=== PATIENT | male | born 1965 | race Two or more races ===

== ENCOUNTER 2017-08-02 18:08 | Inpatient (IN) | payer OTHER ==
[~2017-08-02] VITALS: Ht 167.6 cm; Wt 71.4 kg
--- NOTE | 2017-08-02 19:10 | NUR ---
52 YO MALE BB RA FROM HOME. PATIENT C/O COUGH AND CONGESTION, AND FEVER X 8 DAYS. PATIENT AMBULATED TO ER BED, SKIN WARM AND DRY, RESP EVEN AND UNLABORED. NO DISTRESS NOTED, WILL CONTINUE TO MONITOR
[2017-08-02 20:59] LABS: BASOPHILS # (AUTO) 0.3 /CMM (0.0-0.2); BASOPHILS % (AUTO) 1.3 % (0.0-2.0); EOSINOPHILS # (AUTO) 0.1 /CMM (0.0-0.7); EOSINOPHILS % (AUTO) 0.3 % (0.0-6.0); HEMATOCRIT 37 % (39-51); HEMOGLOBIN 12.8 g/dL (13.5-17.5); LYMPHOCYTES # (AUTO) 1.5 /CMM (0.8-4.8); LYMPHOCYTES % (AUTO) 5.7 % (20.0-44.0); MEAN CORPUSCULAR HEMOGLOBIN 29 PG (26.0-33.0); MEAN CORPUSCULAR HGB CONC 34 g/dl (31.0-36.0); MEAN CORPUSCULAR VOLUME 86 fL (80-96); MONOCYTES # (AUTO) 0.6 /CMM (0.1-1.30); MONOCYTES % (AUTO) 2.4 % (2.0-12.0); NEUTROPHILS # (AUTO) 24.1 /CMM (1.8-8.9); NEUTROPHILS % (AUTO) 90.3 % (43.0-81.0); PLATELET COUNT (AUTO) 370 /CMM (150-450); RDW COEFFICIENT OF VARIATION 12.9 (11.5-15.0); RED BLOOD CELL COUNT(AUTO) 4.37 MIL/uL (4.5-6.0); WHITE BLOOD COUNT (AUTO) 26.6 K/uL (4.3-11.0)
--- NOTE | 2017-08-02 20:59 | NUR ---
20G LEFT AC IV STARTED, BLOOD SAMPLE OBTAINED AND SENT TO LAB. MEDICATED PATIENT ORDERED
[2017-08-02] MEDS ORDERED: IV NS 0.9% 1,000 ML BAG IV ONE (21:00)
[2017-08-02 21:05] LABS: CALCIUM, SERUM 9.3 mg/dL (8.5-10.1); CREATININE 1.1 mg/dL (0.6-1.3); POTASSIUM 4.4 mmol/L (3.5-5.1)
--- NOTE | 2017-08-02 21:59 | NUR ---
PANEL CALLED, SHANON CALLED
[2017-08-02] MEDS ORDERED: AMOX-430 PO (22:20)
[2017-08-02] MEDS ORDERED: SIMV20TA6 PO (22:20)
[2017-08-02] MEDS ORDERED: METF500T4 PO (22:20)
[2017-08-02] MEDS ORDERED: LEVO50TA8 PO (22:20)
[2017-08-02] MEDS ORDERED: RAMI10CA PO (22:20)
[2017-08-02] MEDS ORDERED: PIPERACILLIN /TAZOBACTAM 3.375 G in IV D5W 50 ML IV ONE (22:30)
[2017-08-02] MEDS ORDERED: VANCOMYCIN 1 GM in IV D5W 250 ML IV ONE (22:30)
[2017-08-03] MEDS ORDERED: PIPERACILLIN /TAZOBACTAM 3.375 G VIAL IV ONE (00:16)
[2017-08-03] MEDS ORDERED: VANCOMYCIN 1 GM VIAL ONE (00:16)
[2017-08-03 00:32] LABS: BAND % (MANUAL) 2 % (0.0-5.0); LYMPHOCYTES % (MANUAL) 11 % (16-48); MONOCYTES % (MANUAL) 5 % (0-11.0); NEUTROPHILS % (MANUAL) 82 (42-76)
--- NOTE | 2017-08-03 00:33 | NUR ---
REPORT GIVEN TO KINZA DEL CID FOR TELE ADMISSION BED 327.1
--- NOTE | 2017-08-03 00:35 | NUR ---
TRANSPORTED PT PATIENT TO TELE BED WITHOUT INCIDENT
--- NOTE | 2017-08-03 00:45 | NUR ---
TELE/RN NOTES RECEIVED PT. FROM ER VIA ISHA. PT. IS AWAKE, ALERT AND ORIENTED X3. BREATHING EVEN AND UNLABORED ON ROOM AIR. NO SOB, RESPIRATORY DISTRESS OR COMPLAINTS OF PAIN NOTED AT THIS TIME. PT. WITH LEFT AC 20 GAUGE PERIPHERAL IV PRESENT, PATENT AND INTACT ADMINISTERING TO PT. ALICEO 1GRAM FROM ER. ORIENTED PT. TO ROOM. PLACED EXTERNAL MECHANICAL PROJECT ENGINEER ON PT. CURRENT RHYTHM = SINUS TACHYCARDIA HEART RATE 102. PT. SON PRESENT AT BEDSIDE. BED LOCKED AND IN LOWEST POSITION, SIDE RAILS UP X2, BED ALARM ON, CALL LIGHT WITHIN REACH, WILL CONTINUE TO MONITOR.
[2017-08-03] MEDS ORDERED: LEVOFLOXACIN 500 MG /D5W 100ML 100 ML IV ONE (01:24)
[2017-08-03] MEDS ORDERED: ACETAMINOPHEN 325 MG TABLET ONE (01:25)
[2017-08-03] MEDS ORDERED: DEXTROSE 50%-WATER 50 ML DISP.SYRIN IV PRN (01:30)
[2017-08-03] MEDS ORDERED: INSULIN GLARGINE, 100 UNIT/ML CARTRIDGE SQ ONE (01:30)
[2017-08-03] MEDS ORDERED: ZOLPIDEM TARTRATE 5 MG TABLET PO PRN (01:30)
[2017-08-03] MEDS ORDERED: HYDROCODONE/APAP 5/325MG 1 EACH TABLET PO PRN (01:30)
[2017-08-03] MEDS ORDERED: LEVOFLOXACIN 500 MG /D5W 100ML 500 MG in PREMIX 1 EA IV SCH (01:30)
--- NOTE | 2017-08-03 01:35 | NUR ---
TELE/RN NOTES PT. FEELS WARM TO THE TOUCH. PT. TEMPERATURE IS 101.8F. COOLING MEASURES IMPLEMENTED. WILL ADMINISTER TO PT. TYLENOL ORDERED. PER ER NURSE JOZEF BLOOD CULTURES WERE DONE IN ER. PT. IS CURRENTLY RECEIVING IV ANTIBIOTICS. WILL CONTINUE TO MONITOR.
[2017-08-03] MEDS: ACETAMINOPHEN 325 MG TABLET PO PRN ×2 (01:39→09:42)
--- NOTE | 2017-08-03 02:15 | NUR ---
TELE/RN NOTES COOLING MEASURES EFFECTIVE. PT. TEMPERATURE GOING DOWN. PT. CURRENT TEMPERATURE = 100.1F WILL CONTINUE WITH COOLING MEASURES. WILL CONTINUE TO MONITOR.
--- NOTE | 2017-08-03 02:45 | NUR ---
TELE/RN NOTES COOLING MEASURES EFFECTIVE. PT. CURRENT TEMPERATURE = 98.8F. WILL CONTINUE TO MONITOR.
[2017-08-03] MEDS ORDERED: INSULIN DETEMIR 100 UNIT/ML CARTRIDGE SQ ONE ×2 (03:30→04:26)
--- NOTE | 2017-08-03 03:30 | NUR ---
TELE/RN NOTES CALLED AND SPOKE WITH NURSING BATTERY CONTAINER INSPECTOR GARDENIA, PER GARDENIA LANTUS MEDICATION IS NOT AVAILABLE AT THIS HOSPITAL, PER PHARMACY LANTUS IS CONVERTED TO LEVEMIR. GARDENIA STATED NO NEED TO CALL MD CESPEDES TO CLARIFY CHANGE BECAUSE IT IS POLICY. WILL CHANGE MEDICATION LANTUS TO LEVEMIR. WILL CONTINUE TO MONITOR.
--- NOTE | 2017-08-03 03:31 | NUR ---
TELE/RN NOTES NURSING UTILITY BILL COLLECTION CLERK GARDENIA STATED SHE WILL NOT BE ABLE TO GET LEVEMIR MEDICATION UNTIL AROUND 0400. WILL CONTINUE TO MONITOR AND ADMINISTER MEDICATION TO PATIENT WHEN AVAILABLE.
[2017-08-03 04:01] VITALS: BP 119/74
[2017-08-03] MEDS ORDERED: IV PREMIX 0.45% NS + KCL 1,000 ML IV ONE (04:26)
--- NOTE | 2017-08-03 06:33 | NUR ---
TELE/RN NOTES PT. IS LYING IN BED RESTING. BREATHING EVEN AND UNLABORED ON ROOM AIR. NO SOB, RESPIRATORY DISTRESS OR COMPLAINTS OF PAIN NOTED AT THIS TIME. PT. WITH LEFT AC 20 GAUGE PERIPHERAL IV PRESENT, PATENT AND INTACT ADMINISTERING TO PT. 1/2NS WITH 20 MEQ KCL @ 100ML/HR. PT. WITH EXTERNAL COUNTER INSTALLER PRESENT AND INTACT. CURRENT RHYTHM = SINUS RHYTHM HR 93. ALL PT. NEEDS MET. BED LOCKED AND IN LOWEST POSITION, SIDE RAILS UP X2, BED ALARM ON, CALL LIGHT WITHIN REACH, WILL ENDORSE TO DAYSHIFT NURSE FOR CONTINUITY OF CARE.
[2017-08-03] MEDS: INSULIN REGULAR, HUMAN 100 UNIT/ML 3 ML VIAL SQ PRN ×3 (06:55→17:53)
[2017-08-03 08:00] VITALS: BP 152/77
[2017-08-03] MEDS: BLOOD SUGAR DIAGNOSTIC 1 EACH STRIP VI SCH ×4 (08:21→22:09)
[2017-08-03 10:52] LABS: BASOPHILS % (AUTO) 0.1 % (0.0-2.0); EOSINOPHILS # (AUTO) 0.1 /CMM (0.0-0.7); EOSINOPHILS % (AUTO) 0.4 % (0.0-6.0); HEMATOCRIT 34 % (39-51); HEMOGLOBIN 11.6 g/dL (13.5-17.5); LYMPHOCYTES # (AUTO) 0.9 /CMM (0.8-4.8); LYMPHOCYTES % (AUTO) 3.9 % (20.0-44.0); MEAN CORPUSCULAR HEMOGLOBIN 29 PG (26.0-33.0); MEAN CORPUSCULAR HGB CONC 34 g/dl (31.0-36.0); MEAN CORPUSCULAR VOLUME 86 fL (80-96); MONOCYTES # (AUTO) 0.4 /CMM (0.1-1.30); MONOCYTES % (AUTO) 1.7 % (2.0-12.0); NEUTROPHILS % (AUTO) 93.9 % (43.0-81.0); PLATELET COUNT (AUTO) 356 /CMM (150-450); RDW COEFFICIENT OF VARIATION 12.8 (11.5-15.0); RED BLOOD CELL COUNT(AUTO) 3.98 MIL/uL (4.5-6.0); WHITE BLOOD COUNT (AUTO) 23.4 K/uL (4.3-11.0)
[2017-08-03 11:20] LABS: ALANINE AMINOTRANSFERASE 23 U/L (12-78); ALBUMIN 1.7 g/dL (3.4-5.0); ALKALINE PHOSPHATASE 190 U/L (46-116); ASPARTATE AMINOTRANSFERASE 18 U/L (15-37); BILIRUBIN,TOTAL 0.6 mg/dL (0.2-1.0); CALCIUM, SERUM 8.6 mg/dL (8.5-10.1); CARBON DIOXIDE 22 mmol/L (21-32); CHLORIDE 106 mmol/L (98-107); CREATININE 0.9 mg/dL (0.6-1.3); GLUCOSE 293 mg/dL (74-106); POTASSIUM 4.2 mmol/L (3.5-5.1); SODIUM SERUM 140 mmol/L (136-145); TOTAL PROTEIN, SERUM 6.8 g/dL (6.4-8.2); UREA NITROGEN, BLOOD 15 mg/dL (7-18)
[2017-08-03 11:25] LABS: CHOLESTEROL 60 mg/dL (<200); LDL 30 mg/dL (0-99); TRIGLYCERIDES 112 mg/dL (30-150)
[2017-08-03] MEDS ORDERED: RAMIPRIL 5 MG CAPSULE PO ONE (11:30)
[2017-08-03] MEDS ORDERED: LEVOTHYROXINE SODIUM 50 MCG TABLET PO ONE (11:30)
[2017-08-03 11:39] LABS: HDL CHOLESTEROL < 10 mg/dL (40-60)
[2017-08-03] MEDS ORDERED: FEE PK DOSING 1 MIN EA MC ONE (11:58)
[2017-08-03] MEDS: VANCOMYCIN 1 GM in IV D5W 250 ML IV SCH ×2 (14:14→21:47)
[2017-08-03 16:00] VITALS: BP 154/79
--- NOTE | 2017-08-03 19:11 | NUR ---
RN NOTES PATIENT IS ALERT AND ORIENTED X4, ON O2 AT 4LPM VIA NC, PATIENT DESATURATION DROPS WHEN IN ROOM AIR. BREATHING EVEN AND UNLABORED, NO SOB AT THIS TIME. IVF ONGOING AND TOLERATING WELL, NO C/O PAIN AT THIS TIME, ALL NEEDS ATTENDED AND MET, ASSISTED WITH ADLS. CALL LIGHT WITHIN REACH, WILL ENDORSE TO POSTAL DELIVERY OFFICER FOR MARIELENA. GOT A CALL FROM ADMITTING, PATIENT'S MD WILL BE CHANGED FROM DR. CESPEDES TO YUDY DUE TO INSURANCE.
--- NOTE | 2017-08-03 19:30 | NUR ---
MS RN NOTES RECEIVED PT RESTING IN BED IN HIGH RAMIREZ POSITION. ALERT AND ORIENTED X4, BARBADIAN SPEAKING, UNDERSTANDS LAO. ON O2 AT 4LPM VIA NC, SATTING @ 93 %. PATIENT SATURATION DROPS WHEN @ RA, PER AM RN. BREATHING EVEN AND UNLABORED, NO SOB @ THIS TIME. IV ACCESS TO LAC, INTACT PATENT, IVF ONGOING AND TOLERATING WELL, NO C/O PAIN AT THIS TIME. CALL LIGHT WITHIN REACH. BED IN LOW LOCKED POSITION. WILL OBSERVE CLOSELY.
[2017-08-03 20:00] VITALS: BP 151/73
--- NOTE | 2017-08-03 21:44 | NUR ---
NEW ORDER PT NOTED WITH INTERMITTENT DRY COUGH, DASHAWN LOZOYA MADE AWARE WITH NEW ORDER. NOTED & CARRIED OUT. WILL OBSERVE CLOSELY FOR NEED OF COUGH SYP.
[2017-08-03] MEDS: SIMVASTATIN 20 MG TABLET PO SCH (21:48)
[2017-08-03] MEDS ORDERED: INSULIN DETEMIR 100 UNIT/ML CARTRIDGE SQ SCH (22:00)
[2017-08-03] MEDS ORDERED: GUAIFENESIN/D-METHORPHAN HB 5 ML UDC PO PRN (22:00)
[2017-08-03] MEDS: *INSULIN REGULAR(HUMULIN R)HUM 100 UNIT/ML VIAL SQ PRN (22:13)
[2017-08-03] MEDS ORDERED: GUAIFENESIN/D-METHORPHAN HB 5 ML UDC ONE ×2 (22:51→23:02)
--- NOTE | 2017-08-03 23:07 | NUR ---
PRN ROBITUSSIN GIVEN PT CONTINUED WITH DRY COUGH INTERMITTENTLY & RESP INCREASES DUE TO COUGH. PRN COUGH SYP GIVEN ORDERED. WILL OBSERVE FOR EFFECTIVENESS.
--- NOTE | 2017-08-04 00:10 | NUR ---
ROBITUSSIN EFFECTIVE ROBITUSSIN WAS EFFECTIVE FOR THE PT, COUGH DECREASED & PT WAS ABLE TO FALL ASLEEP.
[2017-08-04] MEDS ORDERED: LEVOFLOXACIN 500 MG /D5W 100ML 500 MG in PREMIX 1 EA IV SCH (01:00)
[2017-08-04] MEDS: ACETAMINOPHEN 325 MG TABLET PO PRN ×2 (01:23→06:33)
--- NOTE | 2017-08-04 01:23 | NUR ---
PRN TYLENOL GIVEN PT HAD C/O HEADACHE & WANTED TO TAKE MEDICINE. PRN TYLENOL GIVEN. WILL REASSESS FOR EFFECTIVENESS.
--- NOTE | 2017-08-04 02:30 | NUR ---
TYLENOL EFFECTIVE PT FELL ASLEEP AFTER TAKING TYLENOL. SLEEPING COMFORTABLY. NO SOB. NO ANY OTHER CHANGES NOTED.
[2017-08-04 04:30] LABS: BASOPHILS # (AUTO) 0.1 /CMM (0.0-0.2); BASOPHILS % (AUTO) 0.5 % (0.0-2.0); EOSINOPHILS # (AUTO) 0.3 /CMM (0.0-0.7); EOSINOPHILS % (AUTO) 2.4 % (0.0-6.0); HEMATOCRIT 34 % (39-51); HEMOGLOBIN 11.7 g/dL (13.5-17.5); LYMPHOCYTES # (AUTO) 1.2 /CMM (0.8-4.8); LYMPHOCYTES % (AUTO) 9.9 % (20.0-44.0); MEAN CORPUSCULAR HEMOGLOBIN 29 PG (26.0-33.0); MEAN CORPUSCULAR HGB CONC 35 g/dl (31.0-36.0); MEAN CORPUSCULAR VOLUME 85 fL (80-96); MONOCYTES # (AUTO) 0.4 /CMM (0.1-1.30); MONOCYTES % (AUTO) 3.2 % (2.0-12.0); NEUTROPHILS # (AUTO) 10.6 /CMM (1.8-8.9); PLATELET COUNT (AUTO) 358 /CMM (150-450); RDW COEFFICIENT OF VARIATION 12.7 (11.5-15.0); RED BLOOD CELL COUNT(AUTO) 3.98 MIL/uL (4.5-6.0); WHITE BLOOD COUNT (AUTO) 12.6 K/uL (4.3-11.0)
[2017-08-04 04:55] LABS: CALCIUM, SERUM 8.8 mg/dL (8.5-10.1); CREATININE 0.8 mg/dL (0.6-1.3)
[2017-08-04 05:00] LABS: POTASSIUM 4.9 mmol/L (3.5-5.1)
[2017-08-04] MEDS: VANCOMYCIN 1 GM in IV D5W 250 ML IV SCH ×3 (05:31→21:51)
[2017-08-04] MEDS: BLOOD SUGAR DIAGNOSTIC 1 EACH STRIP VI SCH ×4 (06:33→22:12)
--- NOTE | 2017-08-04 06:33 | NUR ---
RN CLOSING NOTES PT IS LYING IN BED WATCHING TV. BREATHING EVEN AND UNLABORED ON O2 @ 3LMP. NO SOB, RESPIRATORY DISTRESS NOTED.IV ACCESS TO LEFT AC 20 GAUGE PERIPHERAL IV PRESENT, PATENT AND INTACT. 1/2NS WITH 20 MEQ KCL @ 100ML/HR. HAD C/O HEADACHE, PRN TYLENOL GIVEN, VS WNL. ALL PT NEEDS MET. BED LOCKED AND IN LOWEST POSITION, SIDE RAILS UP X2, BED ALARM ON, CALL LIGHT WITHIN REACH, WILL ENDORSE TO DAY SHIFT NURSE FOR CONTINUITY OF CARE.
[2017-08-04] MEDS: INSULIN REGULAR, HUMAN 100 UNIT/ML 3 ML VIAL SQ PRN ×3 (07:35→17:43)
[2017-08-04 08:00] VITALS: BP 147/81
[2017-08-04] MEDS ORDERED: LEVOTHYROXINE SODIUM 50 MCG TABLET PO SCH (09:00)
[2017-08-04] MEDS ORDERED: RAMIPRIL 5 MG CAPSULE PO SCH (09:00)
[2017-08-04 16:00] VITALS: BP 148/81
--- NOTE | 2017-08-04 18:48 | NUR ---
- patient was discussed by MAULIK Long re: need to transfer to [facility]. due to insurance , p atient & family agreed later. Meals taken & tolerated with infusing IV .Transfer is arranged at 1999.
--- NOTE | 2017-08-04 19:30 | NUR ---
RN CLOSING NOTES: - reported to NOC RN on patient to transfer to [facility] to rm 210 b, as per case mgmt. Infusing IV is on, patient is alert & fully awake.
--- NOTE | 2017-08-04 19:30 | NUR ---
RN OPENING NOTES PT IS RESTING IN BED. FAMILY AT BEDSIDE. NO COMPLAINTS OF PAIN, DISTRESS, OR SOB AT THIS TIME. PT HAS A LEFT AC #20 RUNNING 1/2 NS WITH 20 MEQ KCL@100ML/HR. PT TOLERATING FLUIDS WELL. SAFETY PRECAUTIONS IN PLACE. BED IN LOW LOCKED POSITION, 2XSIDERAILS UP, AND CALL LIGHT WITHIN REACH. PER ARIES NOWAK NURSE PATIENT WILL BE TRANSFERRED TO [facility]. WILL CONTINUE TO MONITOR.
[2017-08-04 20:00] VITALS: BP 138/77
[2017-08-04] MEDS: SIMVASTATIN 20 MG TABLET PO SCH (21:51)
[2017-08-04] MEDS ORDERED: INSULIN DETEMIR 100 UNIT/ML CARTRIDGE SQ SCH (22:00)
[2017-08-04] MEDS: *INSULIN REGULAR(HUMULIN R)HUM 100 UNIT/ML VIAL SQ PRN (22:02)
--- NOTE | 2017-08-04 23:00 | NUR ---
SPOKE WITH TRANSPORT. 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 TRANSPORT SPOKE WITH DISPATCH AND STATED THEY WOULD BE BACK AT THE HOSPITAL BEFORE 1AM.
--- NOTE | 2017-08-05 01:00 | NUR ---
CALLED [facility] STATED THE TRANSPORT TEAM WOULD BE THERE SOON. ASKED FOR A SPECIFIC TIME. THE DISPATCH STATED "GIVE THEM ABOUT A HALF HOUR".
--- NOTE | 2017-08-05 02:15 | NUR ---
TRADE SHOW SPECIALIST NOTES PT WAS TRANSFERRED OFF THE UNIT VIA GURNEY AT 0210. PT VITAL SIGNS ARE STABLE. PT WAS ACCOMPANIED BY HIS SON. PT IS BEING TRANSFERRED TO [facility]. ALL TRANSFER PAPERWORK WAS SIGNED AND COPIES WERE TRANSFERRED WITH PATIENT. ALL PT BELONGINGS WERE TAKEN HOME WITH PT'S SON. REPORT WAS GIVEN TO [facility] BY DAY SHIFT NURSE.
[2017-08-05] MEDS ORDERED: LACTOBACILLUS RHAMNOSUS GG 1 EACH CAP.SPRINK PO SCH (09:00)
== END 2017-08-05 02:05 | disposition short-term general hospital (02) | DRG 871 ==
LOC: ER 18:14 → TELE 08-03 00:39 → MED 08-03 11:19
PROVIDERS: ADMIT Internal Medicine; ATTEND Internal Medicine
DX: A41.9 Sepsis, unspecified organism (principal); J18.9 Pneumonia, unspecified organism; J96.90 Respiratory failure, unspecified, unspecified whether with hypoxia or hypercapnia; E03.9 Hypothyroidism, unspecified; E11.9 Type 2 diabetes mellitus without complications; E78.5 Hyperlipidemia, unspecified; I10 Essential (primary) hypertension; Z79.4 Long term (current) use of insulin
CPT/HCPCS: 36415; 80048-TC; 80053-TC; 80061-TC; 80202-TC; 82962-TC; 83605-TC; 85025-TC; 87081-TC; 87400; A4216; A4606; J1815; J1956; J2543; J3370; J3480; J3490; J7050; J7060; Z7610

== ENCOUNTER 2018-04-22 22:02 | Emergency (ER) | payer SELFPAY ==
[~2018-04-22] VITALS: Ht 167.6 cm; Wt 73.0 kg
[~2018-04-22 22:02] MED LIST: LEVO50TA8 PO; RAMI10CA69 PO; SIMV20TA6 PO
--- NOTE | 2018-04-22 22:02 | NUR ---
LT SIDE ABD PAIN, ON & OFF THROUGHOUT WK, NO N/V/D, LBM X YESTERDAY NORMAL. VSS NO ACUTE DISTRESS NOTED AT THIS TIME. SKIN WARM AND INTACT. BREATHING RATE WNL WITH ADEQUATE CHEST RISE/FALL. WILL CONTINUE TO MONITOR FOR ANY CHANGES DURING THE SHIFT.
--- NOTE | 2018-04-22 22:03 | NUR ---
ER MD QURESHI AT BEDSIDE
[2018-04-22] MEDS ORDERED: ONDANSETRON HCL/PF 4 MG/2 ML VIAL ONE (22:40)
[2018-04-22] MEDS ORDERED: MORPHINE SULFATE INJ 4 MG/ML DISP.SYRIN ONE (22:40)
--- NOTE | 2018-04-22 22:45 | NUR ---
IV STARTED BY KINZA MAO 18G RAC
[2018-04-22] MEDS: MORPHINE SULFATE INJ 2 MG/ML DISP.SYRIN IV ONE (22:49)
[2018-04-22] MEDS: IV NS 0.9% 500 ML BAG IV ONE (22:49)
[2018-04-22] MEDS: ONDANSETRON HCL/PF 4 MG/2 ML VIAL IVP ONE (22:49)
--- NOTE | 2018-04-22 22:50 | NUR ---
BLOOD/URINE TAKEN TO LAB BY PRINCIPAL EXAMINER
[2018-04-22 23:00] LABS: APPEARANCE,URINE CLEAR (CLEAR); BILIRUBIN,URINE NEGATIVE (NEGATIVE); BLOOD, URINE NEGATIVE Ery/uL (NEGATIVE); COLOR,URINE YELLOW (YELLOW); KETONES,URINE NEGATIVE (NEGATIVE); LEUKOCYTE ESTERASE ,URINE NEGATIVE (NEGATIVE); NITRITE, URINE NEGATIVE (NEGATIVE); PH,URINE 6.5 (5.0-8.0); PROTEIN,URINE NEGATIVE (NEGATIVE); UGLUCOSE NEGATIVE (NEGATIVE); UROBILINOGEN,URINE 0.2 EU/dL (0.2)
[2018-04-22 23:00] LABS: BASOPHILS % (AUTO) 0.4 % (0.0-2.0); EOSINOPHILS % (AUTO) 1.2 % (0.0-6.0); HEMATOCRIT 42 % (39-51); HEMOGLOBIN 13.8 g/dL (13.5-17.5); LYMPHOCYTES # (AUTO) 2.6 /CMM (0.8-4.8); LYMPHOCYTES % (AUTO) 37.2 % (20.0-44.0); MEAN CORPUSCULAR HEMOGLOBIN 29 PG (26.0-33.0); MEAN CORPUSCULAR HGB CONC 33 g/dl (31.0-36.0); MEAN CORPUSCULAR VOLUME 89 fL (80-96); MONOCYTES # (AUTO) 0.5 /CMM (0.1-1.30); MONOCYTES % (AUTO) 6.4 % (2.0-12.0); NEUTROPHILS # (AUTO) 3.9 /CMM (1.8-8.9); NEUTROPHILS % (AUTO) 54.8 % (43.0-81.0); PLATELET COUNT (AUTO) 211 /CMM (150-450); RDW COEFFICIENT OF VARIATION 12.1 (11.5-15.0); RED BLOOD CELL COUNT(AUTO) 4.75 MIL/uL (4.5-6.0); WHITE BLOOD COUNT (AUTO) 7.1 K/uL (4.3-11.0)
--- NOTE | 2018-04-22 23:00 | NUR ---
PT OFF TO CT
[2018-04-22 23:07] LABS: CALCIUM, SERUM 8.8 mg/dL (8.5-10.1); CREATININE 0.9 mg/dL (0.6-1.3); POTASSIUM 3.8 mmol/L (3.5-5.1)
[2018-04-22 23:13] LABS: BILIRUBIN,DIRECT 0.1 mg/dL (0.0-0.2); BILIRUBIN,TOTAL 0.5 mg/dL (0.2-1.0); TOTAL PROTEIN, SERUM 7.3 g/dL (6.4-8.2)
--- NOTE | 2018-04-22 23:15 | NUR ---
PATIENT BACK FROM CT
[2018-04-22 23:38] VITALS: BP 130/89
== END 2018-04-22 23:38 | disposition home or self-care (01) ==
LOC: ER 22:04
DX: R10.32 Left lower quadrant pain (principal); I10 Essential (primary) hypertension; E11.9 Type 2 diabetes mellitus without complications; Z98.890 Other specified postprocedural states; Z85.828 Personal history of other malignant neoplasm of skin; Z79.899 Other long term (current) drug therapy
CPT/HCPCS: 36415; 80048-TC; 80076-TC; 81000-TC; 83690-TC; 85025-TC; A4606; J2270; J2405; J7040; Z7610

== ENCOUNTER 2022-12-15 13:19 | Emergency (ER) | payer OTHER ==
[~2022-12-15] VITALS: Ht 167.6 cm; Wt 73.9 kg
[~2022-12-15 13:19] MED LIST changes: +SIMV-46 PO; -SIMV20TA6 PO
[2022-12-15 13:28] VITALS: BP 150/82
[2022-12-15] MEDS ORDERED: TDAP [DIPH/PERTUSSIS/TET] 0.5 ML VIAL IM ONE ×2 (14:00→14:11)
[2022-12-15] MEDS ORDERED: BACI/NEOM/POLY B OINT PKT 1 UDPKT PACKET TP ONE (14:00)
[2022-12-15] MEDS ORDERED: LIDOCAINE HCL/PF 1% 30 ML VIAL TP ONE (14:00)
--- NOTE | 2022-12-15 14:14 | NUR ---
AT BEDSIDE FOR LAC REPAIR
--- NOTE | 2022-12-15 14:33 | NUR ---
Patient discharged to home in stable condition. Written and verbal after care instructions given. Patient verbalizes understanding of instruction.
== END 2022-12-15 14:34 | disposition home or self-care (01) ==
LOC: ER 13:23
DX: S61.212A Laceration without foreign body of right middle finger without damage to nail, initial encounter (principal); I10 Essential (primary) hypertension; E11.9 Type 2 diabetes mellitus without complications; Z98.890 Other specified postprocedural states; Z79.899 Other long term (current) drug therapy; W45.8XXA Other foreign body or object entering through skin, initial encounter; Y93.89 Activity, other specified; Y92.89 Other specified places as the place of occurrence of the external cause; Y99.8 Other external cause status
CPT/HCPCS: 99283; 12001; 90471; 90715; J3490

== ENCOUNTER 2022-12-24 13:26 | Emergency (ER) | payer OTHER ==
[~2022-12-24] VITALS: Ht 172.7 cm; Wt 72.6 kg
[2022-12-24 13:54] VITALS: BP 121/81
--- NOTE | 2022-12-24 14:48 | NUR ---
Patient discharged to home in stable condition. Written and verbal after care instructions given. Patient verbalizes understanding of instruction.
== END 2022-12-24 14:48 | disposition home or self-care (01) ==
LOC: ER 13:29
DX: Z48.02 Encounter for removal of sutures (principal); I10 Essential (primary) hypertension; E78.5 Hyperlipidemia, unspecified; E11.9 Type 2 diabetes mellitus without complications; E03.9 Hypothyroidism, unspecified; Z85.828 Personal history of other malignant neoplasm of skin